=== PATIENT | female | born 1950 | race Caucasian/White ===

== ENCOUNTER 2019-03-07 15:18 | Outpatient (CLI) | payer MEDICARE ==
--- NOTE | 2019-03-07 17:14 | ULT ---
FOCUSED ULTRASOUND OF THE LEFT NECK: 03/07/19 COMPARISON: None. HISTORY: Palpable abnormality within the anterior aspect of the left neck. TECHNIQUE: Multiplanar mcfadden scale sonographic imaging of the neck obtained. FINDINGS: Ion the area of palpable concern, there is a 1.1 x 0.4 cm normal appearing lymph node. In addition, t here is a lymph node measuring 5 mm in short axis dimension in the area of palpable concern. No enlar ged lymph nodes are noted. IMPRESSION: In the area of palpable concern, there are normal appearing lymph nodes. If the area of palpable conc romeo worsens, repeat imaging, including CT, could be beneficial. POS: [facility]
== END 2019-03-07 15:19 | disposition home or self-care (01) ==
LOC: BICULT 15:18
PROVIDERS: ATTEND Internal Medicine Gastroenterology
DX: K21.9 Gastro-esophageal reflux disease without esophagitis (principal); R22.1 Localized swelling, mass and lump, neck; M19.90 Unspecified osteoarthritis, unspecified site
CPT/HCPCS: 76536

== ENCOUNTER 2020-03-13 21:58 | Inpatient (IN) | payer MEDICARE, OTHER ==
[2020-03-13 22:30] LABS: #Lymphocytes 1.5 thou/uL (1.20-3.40); #Monocytes 0.3 thou/uL (0.11-0.59); #Neutrophils 5.5 thou/uL (1.40-6.50); %Basophils 0.4 % (0.0-1.0); %Eosinophils 0.4 % (0.0-10.0); %Lymphocytes 20.3 % (21.0-51.0); %Monocytes 3.8 % (0.0-10.0); Hemoglobin 13.6 g/dL (12.0-16.0); Mean Corpuscular HGB CONC 32.5 g/dL (32.0-36.0); Mean Corpuscular Hemoglobin 30.6 pg (27.0-31.0); Mean Corpuscular Volume 94.1 fL (78.0-98.0); Platelet Count 257 thou/uL (130-400); RBC Distribution Width 12.2 % (11.5-14.5); Red Blood Cell (RBC) Count 4.46 mill/uL (4.20-5.40); White Blood Cell (WBC) Count 7.3 thou/uL (4.8-10.8)
--- NOTE | 2020-03-13 22:39 | RAD ---
EXAM: Single view of the chest HISTORY: Chest pain COMPARISON: None FINDINGS: Single view of the chest shows a normal sized cardiomediastinal silhouette. There is no nuria dence of consolidation, mass, or pleural effusion. Degenerative changes are seen in the spine and shoulders. IMPRESSION: No evidence of acute cardiopulmonary disease
[2020-03-13 22:51] LABS: ALT (SGPT) 12 U/L (8-55); AST (SGOT) 15 U/L (5-34); Albumin 4.4 g/dL (3.4-4.8); Alkaline Phosphatase 62 U/L (40-110); Anion Gap 11 mmol/L (10-20); BUN (Urea Nitrogen) 15 mg/dL (9.8-20.1); Bilirubin, Total 0.4 mg/dL (0.2-1.2); Calc. Creatinine Clearance 0 mL/min (70-130); Calcium 8.9 mg/dL (7.8-10.44); Carbon Dioxide 26 mmol/L (23-31); Chloride 105 mmol/L (98-107); Estimated GFR-MDRD 76; Glucose 119 mg/dL (80-115); Potassium 4.6 mmol/L (3.5-5.1); Protein, Total 7.4 g/dL (6.0-8.3); Sodium 137 mmol/L (136-145)
[2020-03-13] MEDS ORDERED: Aspirin Chewable 81 MG TAB ONE (23:57)
[2020-03-14 02:56] VITALS: BMI 26.0
[2020-03-14] MEDS ORDERED: hydrALAZINE 20 MG/ML VIAL SLOW IVP SCH (04:15)
[2020-03-14] MEDS ORDERED: Bisoprolol Fumarate/HCTZ 5 mg/6.25 mg Tablet PO SCH (05:04)
[2020-03-14] MEDS ORDERED: Acetaminophen 325 MG TAB PO PRN (05:05)
[2020-03-14] MEDS ORDERED: cloNIDine 0.1 MG TAB PO PRN (05:05)
[2020-03-14] MEDS ORDERED: HumaLOG 300 UNITS/3 ML VIAL SC PRN (05:05)
[2020-03-14] MEDS ORDERED: Dextrose 50% Abboject 50 ML SYRINGE SLOW IVP PRN (05:05)
[2020-03-14] MEDS ORDERED: Promethazine HCl 12.5 MG in Sodium Chloride 0.9% 50 ML IVPB PRN (05:05)
[2020-03-14] MEDS ORDERED: Ondansetron PF 4 MG/2 ML Vial IVP PRN (05:05)
[2020-03-14] MEDS ORDERED: hydrALAZINE 20 MG/ML VIAL SLOW IVP PRN (05:05)
[2020-03-14] MEDS ORDERED: HYDROcodone/Acetaminophen 5/325 mg Tablet PO PRN (05:05)
[2020-03-14] MEDS ORDERED: Labetalol HCl 100 MG/20 ML VIAL SLOW IVP PRN (05:05)
[2020-03-14] MEDS ORDERED: Morphine 2 MG/ML VIAL SLOW IVP PRN (05:05)
[2020-03-14] MEDS ORDERED: Bisoprolol Fumarate/HCTZ 10 mg/6.25 mg Tablet PO SCH ×2 (05:10→09:00)
[2020-03-14] MEDS ORDERED: Nitroglycerin 0.4 MG TAB (25 Tab Bottle) SL PRN (05:11)
[2020-03-14] MEDS ORDERED: Electrolyte Replacement Protoc 1 EACH EACH FS PRN (05:15)
--- NOTE | 2020-03-14 05:18 | PDOC.HHP ---
Hospitalist HPI - History of Present Illness Chest pain History of Present Illness: Patient is a 69 year old female with PMH HTN,HLD, prediabetes who presents to ED for chest pain x 30 minutes last ngiht 9-930 pm. She has never had this before, denies history of heart disease. She has HTN and is on norvasc and bisoprolol/hctz and lisinopril. she had a stress test 25 years ago. BP 170s/90s , uncontrolled despite medications. patient has significant FH w/ brother mom and dad all dying from [place]. Hospitalist ROS - Review of Systems Constitutional: denies: fever, chills, sweats, weakness, malaise, other Eyes: denies: pain, vision change, conjunctivae inflammation, eyelid inflammation, redness, other ENT: denies: ear pain, ear discharge, nose pain, nose discharge, nose congestion , mouth pain, mouth swelling, throat pain, throat swelling, other Respiratory: denies: cough, dry, shortness of breath, hemoptysis, SOB with excertion, pleuritic pain, sputum, wheezing, other Cardiovascular: reports: chest pain Gastrointestinal: denies: nausea, vomiting, abdominal pain, diarrhea, constipation, melena, hematochezia, other Genitourinary: denies: dysuria, frequency, incontinence, hematuria, retention, other Musculoskeletal: denies: neck pain, shoulder pain, arm pain, back pain, hand pain, leg pain, foot pain, other Skin: denies: rash, lesions, juan daniel, bruising, other Neurological: denies: weakness, numbness, incoordination, change in speech, confusion, seizures, other All other systems reviewed; all pertinent +/- noted in HPI/Subj - Medication Medications: Active Medications Generic Name Dose Route Start Last Admin Trade Name Freq PRN Reason Stop Dose Admin Hydralazine HCl 5 mg 03/14/20 04:15 03/14/20 04:15 Apresoline SLOW IVP 03/14/20 06:15 5 mg NOW TODD Administration amLODIPine TueMar 13, 2020 22:28 PANFILO Pang Victoria tablet : Strength - 10 mg : ORAL Patient Dose: 10 mg Oral once a day. CoQ-10 TueMar 13, 2020 22:29 PANFILO Pang Victoria capsule : Strength - 100 mg : ORAL Patient Dose: 200 mg Oral once a day. multivitamin oral [facility] Mar 13, 2020 22:29 PANFILO Pang Victoria tablet : ORAL Patient Dose: 1 tab(s) Oral once a day. lisinopril [facility] Mar 13, 2020 22:30 PANFILO Pang Victoria tablet : Strength - 30 mg : ORAL Patient Dose: 30 mg Oral once a day. calcium [facility] Mar 13, 2020 22:31 PANFILO Pang Victoria tablet,chewable : Strength - 300 mg : ORAL Patient Dose: 1200 mg Oral once a day. aspirin oral [facility] Mar 13, 2020 22:31 PANFILO Pang Victoria tablet : Strength - 81 mg : ORAL Patient Dose: 81 mg Oral once a day. Ziac [facility] Mar 13, 2020 22:32 PANFILO Pang Victoria tablet : Strength - 5 mg-6.25 mg : ORAL Patient Dose: 1 tab(s) Oral once a day. Tylenol Arthritis [facility] Mar 13, 2020 22:32 PANFILO Pang Victoria tablet extended release : Strength - 650 mg : ORAL Patient Dose: 2 tab(s) Oral 2 times a day. Claritin [facility] Mar 13, 2020 22:33 PANFILO Pang Victoria tablet : Strength - 10 mg : ORAL Patient Dose: unk mg Oral once a day. Hospitalist History - Past Medical History Other Medical History: prehypertension, prediabetes, breast ca Jun, chemotherapy 1994. - Past Surgical History Other Surgical History: bilateral mastectomy, hysterectomy. - Family History Family History: reports: no pertinent history - Social History Alcohol: reports: None Drugs: reports: none - Exam General Appearance: NAD, awake alert Eye: PERRL, anicteric sclera ENT: normocephalic atraumatic, no oropharyngeal lesions, moist mucosa Neck: supple, symmetric, no JVD, no thyromegaly, no lymphadenopathy, no carotid bruit Heart: RRR, no murmur, no gallops, no rubs, normal peripheral pulses Respiratory: CTAB, no wheezes, no rales, no ronchi, normal chest expansion, no tachypnea, normal percussion Gastrointestinal: soft, non-tender, non-distended, normal bowel sounds, no palpable masses, no hepatomegaly, no splenomegaly, no bruit Extremities: no cyanosis, no clubbing, no edema Skin: normal turgor, no lesions, no rashes Neurological: cranial nerve grossly intact, normal sensation to touch, no weakness, no focal deficits, no new deficit Musculoskeletal: normal tone, normal strength, no muscle wasting Psychiatric: normal affect, normal behavior, A&O x 3 Hospitalist Results - Labs Result Diagrams: 03/13/20 22:21 03/13/20 22:21 Lab results: WBC 7.3 thou/uL (4.8-10.8) 03/13/20 22:21 Hgb 13.6 g/dL (12.0-16.0) 03/13/20 22:21 Hct 42.0 % (36.0-47.0) 03/13/20 22:21 MCV 94.1 fL (78.0-98.0) 03/13/20 22:21 Plt Count 257 thou/uL (130-400) 03/13/20 22:21 Neutrophils % 75.0 % (42.0-75.0) 03/13/20 22:21 Sodium 137 mmol/L (136-145) 03/13/20 22:21 Potassium 4.6 mmol/L (3.5-5.1) 03/13/20 22:21 Chloride 105 mmol/L (98-107) 03/13/20 22:21 Carbon Dioxide 26 mmol/L (23-31) 03/13/20 22:21 BUN 15 mg/dL (9.8-20.1) 03/13/20 22:21 Creatinine 0.76 mg/dL (0.6-1.1) 03/13/20 22:21 Glucose 119 mg/dL (80-115) H 03/13/20 22:21 Calcium 8.9 mg/dL (7.8-10.44) 03/13/20 22:21 Total Bilirubin 0.4 mg/dL (0.2-1.2) 03/13/20 22:21 AST 15 U/L (5-34) 03/13/20 22:21 ALT 12 U/L (8-55) 03/13/20 22:21 Alkaline Phosphatase 62 U/L (40-110) 03/13/20 22:21 Troponin I 0.015 ng/mL (< 0.028) 03/14/20 02:30 Serum Total Protein 7.4 g/dL (6.0-8.3) 03/13/20 22:21 Albumin 4.4 g/dL (3.4-4.8) 03/13/20 22:21 Additional comment: VITAL SIGNS TueMar 14, 2020 00:31 PANFILO Chamorro Amanda BP: 175/86 MAP: 115 Pulse: 54 Resp: 17 Temp: 98.6 (Oral) Pain: 0 O2 sat: 99 on (Room Air) Time: 03/14/2020 00:31. VITAL SIGNS TueMar 14, 2020 01:00 PANFILO Chamorro Amanda BP: 174/96 MAP: 122 Pulse: 57 Resp: 15 Temp: 98.5 (Oral) Pain: 0 O2 sat: 99 on (Room Air) Time: 03/14/2020 01:00. EKG, labs, imaging reports reviewed EKG sinus bradycardia 47 bpm, no acute ST changes Hospitalist H&P A/P - Plan Plan: Patient is a 69 year old female with PMH HTN,HLD, prediabetes who presents to ED for chest pain x 30 minutes last ngiht 9-930 pm. # chest pain - 30 minutes chest pain, EKG w/ sinus bradycardia, patint on beta pricila and other meds for HTN # sinus bradycardia # HTN - uncontrolled - admit to telemetry, obs status - continue home meds - increase hctz/bisoprolol and lisinopril dose for HTN - consult cardiology - add atorvastatin and continue asa/beta pricila - trend troponins - stress test ordered # prediabetes - SSI # HLD - statin added DVT/GI ppx
[2020-03-14] MEDS ORDERED: Lisinopril 20 MG TAB PO SCH (05:30)
[2020-03-14] MEDS ORDERED: Amlodipine 10 MG TAB PO SCH (05:30)
[2020-03-14 06:06] LABS: Troponin I 0.046 ng/mL (< 0.028)
[2020-03-14] MEDS: Enoxaparin Sodium 40 MG/0.4 ML SYRINGE SC SCH (08:45)
[2020-03-14] MEDS: Polyethylene Glycol 3350 17 GM Packet PO SCH (08:50)
[2020-03-14] MEDS: Calcium Carbonate 600 MG TAB PO SCH ×2 (08:51→20:30)
[2020-03-14] MEDS: Multivitamin W/ Minerals 1 TAB PO SCH (08:51)
[2020-03-14] MEDS: Famotidine 20 MG TAB PO SCH ×2 (08:51→20:30)
[2020-03-14] MEDS: Aspirin 81 mg Enteric Coated Tablet PO SCH (08:53)
[2020-03-14 09:38] LABS: CKMB 0.8 ng/mL (0-6.6)
[2020-03-14] MEDS ORDERED: ADENOSINE 60 MG/20 ML VIAL ONE (10:18)
--- NOTE | 2020-03-14 13:54 | NM ---
NM Cardiac Stress W EF WF History: Chest pain Comparison: None. Findings: Stress and rest performed after the intravenous administration 30.2 and 9.2 mCi technetium 99m sestamibi, respectively. Moderate volume scar of the lateral wall near the apex with small volume gudelia-infarct ischemia. Normal wall motion. Calculated ejection fraction is 80%. Impression: Moderate volume scar with small gudelia-infarct ischemia along the lateral wall near the ape x.
[2020-03-14 13:58] LABS: SARS-CoV-2 MS2 Positive; SARS-CoV-2 N Gene Negative; SARS-CoV-2 S Gene Negative; SARS-CoV-2 by NAA Not Detected (NotDetected); SARS-CoV-2 orf1ab Negative
--- NOTE | 2020-03-14 14:03 | PDOC.EVN ---
Event Note - Event Note Event Note: Admitted for CP with mild troponin I elevation with GLOBAL POSITION SYSTEM TECHNICIAN performed showing ischemic region of lateral wall near the apex. Awaiting decision regarding need for cardiac catheterization from Cardiology. NPO now, continue ASA/Nitrates/ Lipitor/Lisinopril.
--- NOTE | 2020-03-14 17:15 | CON ---
DATE OF CONSULTATION: 03/14/2020 REASON FOR CONSULTATION: Chest pain. HISTORY OF PRESENT ILLNESS: Ms. Chauhan is a very pleasant 69-year-old black female, who comes to the hospital for chest pain. She came in for an episode that happened last night between 9:00 and 9:30 p.m. She had a 30-minute episode of chest tightness. It radiated to the left arm. She comes in, initial troponins were negative, so she was sent to have a stress test, which showed possible inferior scar with gudelia-infarct ischemia, so Cardiology has been consulted for this. She states that she has had a stress test about 25 years ago that was negative. Blood pressure was a little bit high on arrival. PAST MEDICAL HISTORY: 1. Hypertension. 2. Hyperlipidemia. 3. Insulin resistance. 4. Breast cancer diagnosed in June 1994 and chemotherapy until 1994. OUTPATIENT MEDICATIONS: 1. Amlodipine 10 mg a day. 2. CoQ10. 3. Multivitamin. 4. Lisinopril 30 mg a day. 5. Calcium. 6. Aspirin 81 a day. 7. Bisoprolol with hydrochlorothiazide 5 mg/6.25 mg a day. 8. Tylenol p.r.n. 9. Claritin p.r.n. SURGICAL HISTORY: 1. Bilateral mastectomies. 2. Hysterectomy. FAMILY HISTORY: Noncontributory. SOCIAL HISTORY: No alcohol, tobacco, or drugs. REVIEW OF SYSTEMS: A 12-point review of systems was done and was all negative unless stated in the history of present illness. PHYSICAL EXAMINATION: VITAL SIGNS: Temperature 98.4, pulse 77, respiratory rate 16, saturations 96% on room air, blood pressure 135/74. GENERAL: Awake, alert, and oriented x3, in no distress. HEENT: Normocephalic and atraumatic. NECK: Supple. LUNGS: Clear. CARDIOVASCULAR: S1 and S2. No S3 or S4. No murmurs. ABDOMEN: Soft. Positive bowel sounds. EXTREMITIES: No edema. SKIN: Warm and dry. LABORATORY DATA: Laboratory work was reviewed. White count of 7, hemoglobin 13, hematocrit 42, and platelet count of 257. Chemistries were unremarkable. Troponin was negative x2, third one was 0.4 and then fourth one was 0.038 with a normal CK-MB. COVID-19 PCR was not detected. Nuclear stress test showed normal LV function and EF at 80%. There is an inferior inferolateral scar with gudelia-infarct ischemia suggested on the perfusion scan. ASSESSMENT: 1. Chest pain. 2. Abnormal nuclear stress test. 3. Hypertension, difficult to control. PLAN: 1. We spoke at length about further risk stratification with a heart catheterization. We spoke about procedure, risks included, but not limited to stroke, NC, , bleeding, need for blood transfusion, limb loss, organ loss. The patient understands, verbalized understanding of this, and agrees to proceed. We will plan on doing this on Tuesday as she had lunch today. 2. Further recommendations per results of coronary angiogram. Job ID: [id number]
[2020-03-14] MEDS: Lisinopril 20 MG TAB PO SCH (20:29)
[2020-03-14] MEDS: Amlodipine 10 MG TAB PO SCH (20:30)
[2020-03-14] MEDS: Atorvastatin Calcium 40 MG TAB PO SCH (20:34)
[2020-03-14] MEDS: Bisoprolol Fumarate/HCTZ 10 mg/6.25 mg Tablet PO SCH (23:28)
[2020-03-15 05:16] LABS: #Basophils 0.1 thou/uL (0.0-0.2); #Lymphocytes 1.7 thou/uL (1.20-3.40); #Monocytes 0.4 thou/uL (0.11-0.59); #Neutrophils 5.9 thou/uL (1.40-6.50); %Basophils 0.8 % (0.0-1.0); %Eosinophils 0.5 % (0.0-10.0); %Lymphocytes 20.4 % (21.0-51.0); %Monocytes 5.4 % (0.0-10.0); %Neutrophils 72.9 % (42.0-75.0); Hemoglobin 14.1 g/dL (12.0-16.0); Mean Corpuscular Hemoglobin 30.8 pg (27.0-31.0); Mean Corpuscular Volume 93.5 fL (78.0-98.0); Mean Platelet Volume 8.1 fL (7.4-10.4); Platelet Count 265 thou/uL (130-400); RBC Distribution Width 12.2 % (11.5-14.5); Red Blood Cell (RBC) Count 4.58 mill/uL (4.20-5.40); White Blood Cell (WBC) Count 8.1 thou/uL (4.8-10.8)
[2020-03-15 05:49] LABS: Anion Gap 14 mmol/L (10-20); BUN (Urea Nitrogen) 16 mg/dL (9.8-20.1); Calc. Creatinine Clearance 89 mL/min (70-130); Calcium 9.5 mg/dL (7.8-10.44); Carbon Dioxide 22 mmol/L (23-31); Cardiac Risk 3.3 (Less than 4.5); Chloride 105 mmol/L (98-107); Cholesterol 200 mg/dl (< 200 Desired); Estimated GFR-MDRD 78; Glucose 111 mg/dL (80-115); HDL Cholesterol 61 mg/dL (>60 Neg Risk); LDL Cholesterol, Calculated 125 mg/dL; Magnesium 2.1 mg/dL (1.6-2.6); Potassium 4.3 mmol/L (3.5-5.1); Sodium 137 mmol/L (136-145); Triglycerides 68 mg/dL (Less than 150)
[2020-03-15] MEDS: Calcium Carbonate 600 MG TAB PO SCH ×2 (08:31→20:23)
[2020-03-15] MEDS: Multivitamin W/ Minerals 1 TAB PO SCH (08:31)
[2020-03-15] MEDS: Aspirin 81 mg Enteric Coated Tablet PO SCH (08:31)
[2020-03-15] MEDS: Famotidine 20 MG TAB PO SCH ×2 (08:31→20:23)
[2020-03-15] MEDS: Enoxaparin Sodium 40 MG/0.4 ML SYRINGE SC SCH (08:32)
[2020-03-15] MEDS: Polyethylene Glycol 3350 17 GM Packet PO SCH (08:32)
--- NOTE | 2020-03-15 11:32 | EKG ---
Test Reason : BRADYCARDIA Blood Pressure : / mmHG Vent. Rate : 047 BPM Atrial Rate : 047 BPM P-R Int : 148 ms QRS Dur : 082 ms QT Int : 450 ms P-R-T Axes : 054 -22 005 degrees QTc Int : 398 ms Marked sinus bradycardia Moderate voltage criteria for LVH, may be normal variant Cannot rule out Septal infarct , age undetermined Abnormal ECG Confirmed by JENNIFER ROSA ([id number]), editorial intern JOSEFA STOVALL ([id number]) on 03/15/2020 11:32:12 AM Referred By: Confirmed By:JENNIFER ROSA
--- NOTE | 2020-03-15 11:32 | EKG ---
Test Reason : CHEST PAIN Blood Pressure : / mmHG Vent. Rate : 061 BPM Atrial Rate : 061 BPM P-R Int : 190 ms QRS Dur : 090 ms QT Int : 400 ms P-R-T Axes : 064 -10 020 degrees QTc Int : 402 ms Normal sinus rhythm Possible Left atrial enlargement Septal infarct , age undetermined Abnormal ECG T wave inversion, III, V2 Confirmed by JENNIFER ROSA ([id number]), technical writer and editor JOSEFA STOVALL ([id number]) on 03/15/2020 11:32:00 AM Referred By: Confirmed By:JENNIFER ROSA
--- NOTE | 2020-03-15 11:32 | EKG ---
Test Reason : CHEST PAIN Blood Pressure : / mmHG Vent. Rate : 053 BPM Atrial Rate : 053 BPM P-R Int : 180 ms QRS Dur : 090 ms QT Int : 430 ms P-R-T Axes : 074 -23 006 degrees QTc Int : 403 ms Sinus bradycardia Minimal voltage criteria for LVH, may be normal variant Borderline ECG Confirmed by JENNIFER ROSA ([id number]), publishing editor JOSEFA STOVALL ([id number]) on 03/15/2020 11:32:09 AM Referred By: Confirmed By:JENNIFER ROSA
--- NOTE | 2020-03-15 13:16 | PDOC.HOSPP ---
- Subjective Encounter Date: 03/15/20 Encounter Time: 09:00 Subjective: no overnight events. this morning feeling well and has no complaints of chest pain or otherwise. Pending [facility] on tuesday - Objective Vital Signs & Weight: Vital Signs (12 hours) Temp Pulse Resp BP Pulse Ox 03/15/20 11:48 98.3 F 54 L 18 117/66 97 03/15/20 08:00 98.1 F 73 20 131/83 97 03/15/20 07:43 97 03/15/20 05:59 58 L 138/79 Weight Weight 171 lb 4.8 oz I&O: 03/14/20 03/15/20 03/16/20 06:59 06:59 06:59 Intake Total 50 480 480 Output Total 600 Balance -550 480 480 Result Diagrams: 03/15/20 04:36 03/15/20 04:36 Additional Labs: Accuchecks 03/15/20 03/14/20 03/14/20 11:54 20:43 16:53 POC Glucose 110 119 H 156 H 03/14/20 14:14 POC Glucose 131 H Hospitalist ROS - Review of Systems Constitutional: denies: fever, chills, sweats Respiratory: denies: cough, dry, shortness of breath Cardiovascular: denies: chest pain, palpitations, orthopnea, paroxysmal noc. dyspnea Gastrointestinal: denies: nausea, vomiting, abdominal pain, diarrhea Genitourinary: denies: dysuria, frequency, hematuria - Medication Medications: Active Medications Generic Name Dose Route Start Last Admin Trade Name Freq PRN Reason Stop Dose Admin Amlodipine Besylate 10 mg 03/14/20 21:00 03/14/20 20:30 Norvasc PO 10 mg HS TODD Administration Aspirin 81 mg 03/14/20 09:00 03/15/20 08:31 Ecotrin PO 81 mg DAILY TODD Administration Atorvastatin Calcium 40 mg 03/14/20 21:00 03/14/20 20:34 Lipitor PO Not Given HS TODD Bisoprolol Fumarate/HCTZ 1 tab 03/14/20 21:00 03/14/20 23:28 Ziac 10-6.25 PO 1 tab HS TODD Administration Calcium Carbonate 600 mg 03/14/20 09:00 03/15/20 08:31 Caltrate PO 600 mg BID TODD Administration Enoxaparin Sodium 40 mg 03/14/20 09:00 03/15/20 08:32 Lovenox SC 40 mg 0900 TODD Administration Famotidine 20 mg 03/14/20 09:00 03/15/20 08:31 Pepcid PO 20 mg BID TODD Administration Iron/Minerals/Multivitamins 1 tab 03/14/20 09:00 03/15/20 08:31 Theragran M PO 1 tab DAILY TODD Administration Lisinopril 40 mg 03/14/20 21:00 03/14/20 20:29 Zestril PO 40 mg HS TODD Administration Polyethylene Glycol 17 gm 03/14/20 09:00 03/15/20 08:32 Miralax PO Not Given DAILY TODD - Exam General Appearance: NAD, awake alert Neck: no JVD Heart: RRR, no murmur, no gallops, no rubs Respiratory: CTAB, no wheezes, no rales, no ronchi Gastrointestinal: soft, non-tender, non-distended, normal bowel sounds Extremities: no edema Psychiatric: normal affect, normal behavior, A&O x 3 Hosp A/P - Plan #chest pain (resolved) abnormal stress test pending [facility] on tuesday #sinus bradycardia asymptomatic cardiology onboard #HTN well controlled full code ELOS: 3 nights
--- NOTE | 2020-03-15 16:08 | PDOC.CPN ---
- Subjective Date: 03/15/20 Time: 16:06 Interval history: No new issues. No more chest pain. - Review of Systems General: denies: fever/chills, weight/appetite/sleep changes, night sweats, fatigue Respiratory: denies: cough, congestion, shortness of breath, exercise intolerance Cardiovascular: denies: chest pain, palpitation, edema, paroxysmal nocturnal dyspnea, orthopnea Gastrointestinal: denies: nausea, vomiting, diarrhea, constipation, abd pain, GI bleeding Musculoskeletal: denies: pain, tenderness, stiffness, swelling, arthritis/ arthralgias Neurological: denies: numbness, syncope, seizure, weakness - Objective Allergies/Adverse Reactions: Allergies Allergy/AdvReac Type Severity Reaction Status Date / Time No Known Allergies Allergy Unverified 03/14/20 03:07 Visit Medications: Current Medications Acetaminophen (Tylenol) 650 mg PO Q4H PRN PRN Reason: Headache/Fever/Mild Pain (1-3) Hydrocodone Bitart/Acetaminophen ([place] 5/325) 1 tab PO Q4H PRN PRN Reason: Moderate Pain (4-6) Albuterol/Ipratropium (Duoneb) 3 ml NEB [id number] PRN PRN Reason: SOB &/or Wheezing Amlodipine Besylate (Norvasc) 10 mg PO [facility] Last Admin: 03/14/20 20:30 Dose: 10 mg Aspirin (Ecotrin) 81 mg PO DAILY [facility] Last Admin: 03/15/20 08:31 Dose: 81 mg Atorvastatin Calcium (Lipitor) 40 mg PO [facility] Last Admin: 03/14/20 20:34 Dose: Not Given Bisoprolol Fumarate/HCTZ (Ziac 10-6.25) 1 tab PO [facility] Last Admin: 03/14/20 23:28 Dose: 1 tab Calcium Carbonate (Caltrate) 600 mg PO BID [facility] Last Admin: 03/15/20 08:31 Dose: 600 mg Clonidine (Catapres) 0.1 mg PO BID PRN PRN Reason: SBP > 160 use second Dextrose/Water (Dextrose 50%) 25 gm SLOW IVP PRN PRN PRN Reason: Hypoglycemia Enoxaparin Sodium (Lovenox) 40 mg SC 0900 [facility] Last Admin: 03/15/20 08:32 Dose: 40 mg Famotidine (Pepcid) 20 mg PO BID [facility] Last Admin: 03/15/20 08:31 Dose: 20 mg Hydralazine HCl (Apresoline) 10 mg SLOW IVP Q6H PRN PRN Reason: SBP GREATER THAN 160 Promethazine HCl 12.5 mg/ (Sodium Chloride) 50.5 mls @ 202 mls/hr IVPB Q6H PRN PRN Reason: Nausea/vomiting use second Insulin Human Lispro (Humalog) 0 units SC .MILD SLIDING SCALE PRN PRN Reason: Mild Correctional Scale Iron/Minerals/Multivitamins (Theragran M) 1 tab PO DAILY [facility] Last Admin: 03/15/20 08:31 Dose: 1 tab Labetalol HCl (Normodyne) 20 mg SLOW IVP Q4H PRN PRN Reason: SBP > 160 use third Lisinopril (Zestril) 40 mg PO [facility] Last Admin: 03/14/20 20:29 Dose: 40 mg Miscellaneous Medication (Electrolyte Replacement Protocol) 1 each FS PRN PRN PRN Reason: ELECTROLYTES Morphine Sulfate (Morphine) 2 mg SLOW IVP Q4H PRN PRN Reason: severe pain 4-10 Nitroglycerin (Nitrostat) 0.4 mg SL Q5MIN PRN PRN Reason: Chest Pain Ondansetron HCl (Zofran) 4 mg IVP Q6H PRN PRN Reason: Nausea/Vomiting use 1st Polyethylene Glycol (Miralax) 17 gm PO DAILY [facility] Last Admin: 03/15/20 08:32 Dose: Not Given Vital Signs & Weight: Vital Signs Temp Pulse Resp BP Pulse Ox 03/15/20 11:48 98.3 F 54 L 18 117/66 97 03/15/20 08:00 98.1 F 73 20 131/83 97 03/15/20 07:43 97 03/15/20 05:59 58 L 138/79 Weight 171 lb 4.8 oz - Physical Exam General: alert & oriented x3 HEENT: mucus membranes moist Neck: supple neck Cardiac: regular rate and rhythm Lungs: normal breath sounds Neuro: grossly intact Abdomen: active bowel sounds Extremities: no edema Skin: clear Musculoskeletal: no pain - Labs Result Diagrams: 03/15/20 04:36 03/15/20 04:36 Troponin/CKMB CK-MB (CK-2) 0.8 ng/mL (0-6.6) 03/14/20 08:28 Troponin I 0.038 ng/mL (< 0.028) H 03/14/20 08:28 - Telemetry Sinus rhythms and dysrhythmias: sinus rhythm - Assessment/Plan Assessment/Plan: 1. Chest pain. 2. Abnormal stress test, inferior scar with gudelia infarct ischemia PLAN: - [facility] tuesday. - Radial access. JACKIE of needed.
[2020-03-15] MEDS: Amlodipine 10 MG TAB PO SCH (20:22)
[2020-03-15] MEDS: Bisoprolol Fumarate/HCTZ 10 mg/6.25 mg Tablet PO SCH (20:23)
[2020-03-15] MEDS: Lisinopril 20 MG TAB PO SCH (20:23)
[2020-03-15] MEDS: Atorvastatin Calcium 40 MG TAB PO SCH (20:23)
[2020-03-16] MEDS: Calcium Carbonate 600 MG TAB PO SCH ×2 (08:55→21:12)
[2020-03-16] MEDS: Enoxaparin Sodium 40 MG/0.4 ML SYRINGE SC SCH (08:55)
[2020-03-16] MEDS: Famotidine 20 MG TAB PO SCH ×2 (08:55→21:12)
[2020-03-16] MEDS: Aspirin 81 mg Enteric Coated Tablet PO SCH (08:55)
[2020-03-16] MEDS: Polyethylene Glycol 3350 17 GM Packet PO SCH (08:56)
[2020-03-16] MEDS: Multivitamin W/ Minerals 1 TAB PO SCH (08:56)
--- NOTE | 2020-03-16 17:29 | PDOC.CPN ---
- Subjective Date: 03/16/20 Time: 17:28 Interval history: No new issues. No more chest pain. - Review of Systems General: denies: fever/chills, weight/appetite/sleep changes, night sweats, fatigue Respiratory: denies: cough, congestion, shortness of breath, exercise intolerance Cardiovascular: denies: chest pain, palpitation, edema, paroxysmal nocturnal dyspnea, orthopnea Gastrointestinal: denies: nausea, vomiting, diarrhea, constipation, abd pain, GI bleeding Musculoskeletal: denies: pain, tenderness, stiffness, swelling, arthritis/ arthralgias Neurological: denies: numbness, syncope, seizure, weakness - Objective Allergies/Adverse Reactions: Allergies Allergy/AdvReac Type Severity Reaction Status Date / Time No Known Allergies Allergy Unverified 03/14/20 03:07 Visit Medications: Current Medications Acetaminophen (Tylenol) 650 mg PO Q4H PRN PRN Reason: Headache/Fever/Mild Pain (1-3) Hydrocodone Bitart/Acetaminophen ([place] 5/325) 1 tab PO Q4H PRN PRN Reason: Moderate Pain (4-6) Albuterol/Ipratropium (Duoneb) 3 ml NEB [id number] PRN PRN Reason: SOB &/or Wheezing Amlodipine Besylate (Norvasc) 10 mg PO [facility] Last Admin: 03/15/20 20:22 Dose: 10 mg Aspirin (Ecotrin) 81 mg PO DAILY [facility] Last Admin: 03/16/20 08:55 Dose: 81 mg Atorvastatin Calcium (Lipitor) 40 mg PO [facility] Last Admin: 03/15/20 20:23 Dose: 40 mg Bisoprolol Fumarate/HCTZ ([place] 10-6.25) 1 tab PO [facility] Last Admin: 03/15/20 20:23 Dose: 1 tab Calcium Carbonate (Caltrate) 600 mg PO BID [facility] Last Admin: 03/16/20 08:55 Dose: 600 mg Clonidine (Catapres) 0.1 mg PO BID PRN PRN Reason: SBP > 160 use second Dextrose/Water (Dextrose 50%) 25 gm SLOW IVP PRN PRN PRN Reason: Hypoglycemia Enoxaparin Sodium (Lovenox) 40 mg SC 0900 [facility] Last Admin: 03/16/20 08:55 Dose: 40 mg Famotidine (Pepcid) 20 mg PO BID [facility] Last Admin: 03/16/20 08:55 Dose: 20 mg Hydralazine HCl (Apresoline) 10 mg SLOW IVP Q6H PRN PRN Reason: SBP GREATER THAN 160 Promethazine HCl 12.5 mg/ (Sodium Chloride) 50.5 mls @ 202 mls/hr IVPB Q6H PRN PRN Reason: Nausea/vomiting use second Insulin Human Lispro (Humalog) 0 units SC .MILD SLIDING SCALE PRN PRN Reason: Mild Correctional Scale Iron/Minerals/Multivitamins (Theragran M) 1 tab PO DAILY [facility] Last Admin: 03/16/20 08:56 Dose: 1 tab Labetalol HCl (Normodyne) 20 mg SLOW IVP Q4H PRN PRN Reason: SBP > 160 use third Lisinopril (Zestril) 40 mg PO HS [facility] Last Admin: 03/15/20 20:23 Dose: 40 mg Miscellaneous Medication (Electrolyte Replacement Protocol) 1 each FS PRN PRN PRN Reason: ELECTROLYTES Morphine Sulfate (Morphine) 2 mg SLOW IVP Q4H PRN PRN Reason: severe pain 4-10 Nitroglycerin (Nitrostat) 0.4 mg SL Q5MIN PRN PRN Reason: Chest Pain Ondansetron HCl (Zofran) 4 mg IVP Q6H PRN PRN Reason: Nausea/Vomiting use 1st Polyethylene Glycol (Miralax) 17 gm PO DAILY [facility] Last Admin: 03/16/20 08:56 Dose: 17 gm Vital Signs & Weight: Vital Signs Temp Pulse Resp BP Pulse Ox 03/16/20 15:21 98.1 F 60 18 119/73 97 03/16/20 11:55 98 F 55 L 18 121/75 95 03/16/20 08:54 98 03/16/20 08:00 97.9 F 57 L 17 151/86 H 97 Weight 171 lb 4.8 oz - Physical Exam General: alert & oriented x3 HEENT: mucus membranes moist Neck: supple neck Cardiac: regular rate and rhythm Lungs: clear to auscultation Neuro: grossly intact Abdomen: active bowel sounds Extremities: no edema Skin: clear Musculoskeletal: no pain - Labs Result Diagrams: 03/15/20 04:36 03/15/20 04:36 Troponin/CKMB CK-MB (CK-2) 0.8 ng/mL (0-6.6) 03/14/20 08:28 Troponin I 0.038 ng/mL (< 0.028) H 03/14/20 08:28 - Telemetry Sinus rhythms and dysrhythmias: sinus rhythm - Assessment/Plan Assessment/Plan: 1. Chest pain. 2. Abnormal stress test, inferior scar with gudelia infarct ischemia PLAN: - [facility] Tomorrow. - Radial access. JACKIE of needed.
--- NOTE | 2020-03-16 18:27 | PDOC.HOSPP ---
- Subjective Encounter Date: 03/16/20 Encounter Time: 09:00 Subjective: no overnight events. this morning, feeling well and has no complaints. - Objective Vital Signs & Weight: Vital Signs (12 hours) Temp Pulse Resp BP Pulse Ox 03/16/20 15:21 98.1 F 60 18 119/73 97 03/16/20 11:55 98 F 55 L 18 121/75 95 03/16/20 08:54 98 03/16/20 08:00 97.9 F 57 L 17 151/86 H 97 Weight Weight 171 lb 4.8 oz I&O: 03/15/20 03/16/20 03/17/20 06:59 06:59 06:59 Intake Total 480 1200 Balance 480 1200 Result Diagrams: 03/15/20 04:36 03/15/20 04:36 Additional Labs: Accuchecks 03/16/20 03/16/20 03/16/20 17:02 10:48 06:31 POC Glucose 119 H 129 H 108 03/15/20 21:11 POC Glucose 133 H Hospitalist ROS - Review of Systems Constitutional: denies: chills, sweats Respiratory: denies: cough, dry, shortness of breath Gastrointestinal: denies: nausea, vomiting, abdominal pain Musculoskeletal: denies: shoulder pain, back pain Neurological: denies: weakness - Medication Medications: Active Medications Generic Name Dose Route Start Last Admin Trade Name Freq PRN Reason Stop Dose Admin Amlodipine Besylate 10 mg 03/14/20 21:00 03/15/20 20:22 Norvasc PO 10 mg HS TODD Administration Aspirin 81 mg 03/14/20 09:00 03/16/20 08:55 Ecotrin PO 81 mg DAILY TODD Administration Atorvastatin Calcium 40 mg 03/14/20 21:00 03/15/20 20:23 Lipitor PO 40 mg HS TODD Administration Bisoprolol Fumarate/HCTZ 1 tab 03/14/20 21:00 03/15/20 20:23 Ziac 10-6.25 PO 1 tab HS TODD Administration Calcium Carbonate 600 mg 03/14/20 09:00 03/16/20 08:55 Caltrate PO 600 mg BID TODD Administration Enoxaparin Sodium 40 mg 03/14/20 09:00 03/16/20 08:55 Lovenox SC 03/16/20 21:30 40 mg 0900 TODD Administration Famotidine 20 mg 03/14/20 09:00 03/16/20 08:55 Pepcid PO 20 mg BID TODD Administration Iron/Minerals/Multivitamins 1 tab 03/14/20 09:00 03/16/20 08:56 Theragran M PO 1 tab DAILY TODD Administration Lisinopril 40 mg 03/14/20 21:00 03/15/20 20:23 Zestril PO 40 mg HS TODD Administration Polyethylene Glycol 17 gm 03/14/20 09:00 03/16/20 08:56 Miralax PO 17 gm DAILY TODD Administration - Exam General Appearance: NAD, awake alert Eye: PERRL Neck: no JVD Heart: RRR, no murmur, no gallops, no rubs Respiratory: CTAB, no wheezes, no rales, no ronchi Gastrointestinal: soft, non-tender, non-distended, normal bowel sounds Extremities: no edema Psychiatric: normal affect, normal behavior, A&O x 3 Hosp A/P - Plan #chest pain (resolved) abnormal stress test pending [facility] on tuesday #sinus bradycardia asymptomatic cardiology onboard #HTN well controlled full code ELOS: 2 nights
[2020-03-16] MEDS ORDERED: Communication Order-Pharmacy FS SCH (18:30)
[2020-03-16] MEDS: Lisinopril 20 MG TAB PO SCH (21:11)
[2020-03-16] MEDS: Bisoprolol Fumarate/HCTZ 10 mg/6.25 mg Tablet PO SCH (21:11)
[2020-03-16] MEDS: Amlodipine 10 MG TAB PO SCH (21:12)
[2020-03-16] MEDS: Atorvastatin Calcium 40 MG TAB PO SCH (21:12)
[2020-03-17] MEDS: Sodium Chloride 0.9% 1,000 ML IV SCH ×3 (05:55→05:57)
[2020-03-17] MEDS ORDERED: Verapamil 5 MG/2 ML VIAL ONE (08:43)
[2020-03-17] MEDS ORDERED: Heparin 10,000 UNITS/ 10 ML VIAL ONE (08:43)
[2020-03-17] MEDS ORDERED: Nitroglycerin 100MG/250ML BOT 250 ML ONE (08:44)
[2020-03-17] MEDS ORDERED: Iopamidol 370 76% 100 ML VIAL ONE (09:14)
[2020-03-17] MEDS ORDERED: Fentanyl 100 MCG/2 ML VIAL ONE (09:25)
[2020-03-17] MEDS ORDERED: Midazolam HCl 2 mg/2 ml Vial ONE (09:25)
[2020-03-17] MEDS ORDERED: Sodium Chloride 0.9% 200 ML IV PRN (09:45)
[2020-03-17] MEDS ORDERED: Acetaminophen/Codeine 30-300mg Tablet PO PRN (09:45)
[2020-03-17] MEDS ORDERED: Sodium Chloride 0.9% 500 ML IV SCH (10:00)
[2020-03-17] MEDS: Multivitamin W/ Minerals 1 TAB PO SCH (11:19)
[2020-03-17] MEDS: Calcium Carbonate 600 MG TAB PO SCH (11:19)
[2020-03-17] MEDS: Aspirin 81 mg Enteric Coated Tablet PO SCH (11:19)
[2020-03-17] MEDS: Polyethylene Glycol 3350 17 GM Packet PO SCH (11:20)
[2020-03-17] MEDS: Famotidine 20 MG TAB PO SCH (11:27)
[2020-03-17 15:01] VITALS: BP 128/63; TEMP 97.8
--- NOTE | 2020-03-18 07:02 | DIS ---
DATE OF ADMISSION: 03/14/2020 DATE OF DISCHARGE: 03/17/2020 CONSULTANTS: Dr. Cabrera of Cardiology. DISCHARGE MEDICATIONS: Medications reconciled at discharge. New medications: 1. Atorvastatin 40 mg daily. 2. Pantoprazole 20 mg daily p.o. All other home medications were continued which include; 1. Lisinopril 30 mg. 2. Bisoprolol/hydrochlorothiazide 1 tablet 5/6.25 mg. 3. Amlodipine 10 mg. 4. Calcium carbonate 600 mg p.o. b.i.d. 5. Multivitamin 1 tablet p.o. daily. 6. Aspirin 81 mg p.o. daily. 7. CoQ10 200 mg p.o. daily. No medications were stopped or modified. FINAL DIAGNOSES: 1. Coronary artery disease 2. Hypertension 3. Hyperlipidemia 3. Chest pain 4. GERD HISTORY OF PRESENT ILLNESS: 69-year-old female with past medical history of hypertension, hyperlipidemia, prediabetes who presents to ED for chest pain for 30 minutes night prior to admission. Patient reports she has never had this before. Denies history of heart disease. She has hypertension and is on Norvasc, Bisoprolol/hydrochlorothiazide, and lisinopril. She had a stress test 25 years ago. Blood pressure 170s/90s. Patient has significant family history of cardiac disease with brother, mom, and dad all dying from OK. HOSPITAL COURSE: Ms. Chauhan is a 69-year-old female with past medical history of hypertension, hyperlipidemia, and significant family history of fatal OK in her brother and both her parents, who presented to the ED on 03/14/2020 for chest pain. Initial workup showed an EKG with sinus bradycardia with no ischemic changes. Initial troponin levels were 0.015, 0.046, 0.038. Cardiac stress test revealed an ejection fraction of 80% with moderate volume scar and small gudelia-infract ischemia along the lateral wall near the apex. Dr. Cabrera of Cardiology was consulted who recommended heart catheterization. Patient underwent a left heart catheterization on 03/17/2020 with radial access which revealed 40% stenosis of the proximal LAD. Dr. Cabrera felt the patient's chest pain to be noncardiac in origin. Chest pain likely secondary to GI distress/GERD. We will start patient on PPI. Dr. Cabrera also recommended that patient continue aspirin and statin for life along with undergoing an elective CV surgery consultation. On the day of discharge the patient's vital signs were stable. Patient tolerated the procedure well with no complications. Hemostasis at the right radial artery was achieved with no evidence of hematoma and good pulses. Patient was felt to be medically stable for discharge with close follow-up with her PCP and Cardiology. Patient was continued on all home medications as well as starting atorvastatin 40 mg daily and pantoprazole 20 mg daily. These will need to be monitored by the patient's primary care provider. Patient will follow up with her PCP in 1 week and with Cardiology in 3 to 4 weeks. Vital signs on the day of discharge 97.8, 55, 128/63, 17, 97 on room air. Patient was initially hypertensive on presentation, but this resolved when resuming her home antihypertensives. PHYSICAL EXAMINATION: GENERAL: Awake, alert, in no acute distress. HEENT: Normocephalic, atraumatic. NECK: Supple with no JVD. LUNGS: Clear to auscultation bilaterally with no wheezes, rales, or rhonchi. HEART: Regular rate and rhythm. No murmurs, rubs, or gallops. ABDOMEN: Soft, nontender. Normoactive bowel sounds. EXTREMITIES: With no swelling, no focal deficits. Sensation intact to extremities. Right radial artery access with no hematoma, good radial pulses and ulnar pulses. Right hand with good capillary refill. LABORATORY DATA: Initial labs; CBC showed white blood cell count 7.3, hemoglobin 13.6, hematocrit 42.0, platelets 257. Chemistry: Sodium 137, potassium 4.3, chloride 105, carbon dioxide 22, BUN 16, creatinine 0.74. Glucose 111. Calcium 9.5, magnesium 2.1, cholesterol 200, LDL 125, HDL 61, triglycerides 68. COVID- 19 negative. IMAGING STUDIES: Chest x-ray done on 03/13/2020 showed no evidence of acute cardiopulmonary disease. Stress test on 03/14/2020 showed calculated ejection fraction of 80% with moderate volume scar with small gudelia-infract ischemic along the lateral wall near the apex. Left heart cath done on 03/17/2020 showed a 40% stenosis of the proximal LAD, mild coronary artery disease, normal left ejection fraction, normal left ventricle end-diastolic pressure. No LV to aortic gradient. DIET: Heart healthy diet. ACTIVITIES: Radial artery access restrictions. No lifting 10 pounds for 10 days. CODE STATUS: Full code. DISCHARGE DISPOSITION: Home. FOLLOWUP: Patient to follow up with her primary care physician in 1 weeek and to follow up with Cardiology, Dr. Cabrera in 3 to 4 weeks. Patient demonstrates understanding and is in agreement with plan. Case discussed with attending physician, Dr. Hawk. TIME SPENT: Time spent on discharge planning is less than 30 minutes. Job ID: [id number] [id number]
== END 2020-03-17 17:18 | disposition home or self-care (01) | DRG 392 ==
LOC: ERS 21:58 → 2SW 03-14 01:22 → OBSVTOIN 03-14 15:20 → 2SE 03-14 17:59
PROVIDERS: ADMIT Internal Medicine; ATTEND Internal Medicine
PROC: B2111ZZ Fluoroscopy of Multiple Coronary Arteries using Low Osmolar Contrast (ICD-10-PCS; principal; 2020-03-17)
PROC: 4A023N7 Measurement of Cardiac Sampling and Pressure, Left Heart, Percutaneous Approach (ICD-10-PCS; 2020-03-17)
DX: K21.9 Gastro-esophageal reflux disease without esophagitis (principal); I10 Essential (primary) hypertension; R00.1 Bradycardia, unspecified; E78.5 Hyperlipidemia, unspecified; R73.03 Prediabetes; Z79.899 Other long term (current) drug therapy; Z79.82 Long term (current) use of aspirin; Z90.710 Acquired absence of both cervix and uterus; Z90.13 Acquired absence of bilateral breasts and nipples; Z92.21 Personal history of antineoplastic chemotherapy; R07.9 Chest pain, unspecified; I25.10 Atherosclerotic heart disease of native coronary artery without angina pectoris
CPT/HCPCS: 36415; 36416; 71045; 78452; 80048; 80053; 80061; 82553; 83735; 84484; 85025; 87635; 93005; 93017; 93458; 96374; 99152; A9500; G0378; J0153; J0360; J1644; J1650; J2250; J3010; Q9967; U0003

== ENCOUNTER 2022-08-18 14:11 | Outpatient (CLI) | payer MEDICARE ==
[2022-08-18 15:06] LABS: #Basophils 0.1 10x3/uL (0.0-0.2); #Eosinphils 0.1 10x3/uL (0.0-0.5); #Monocytes 0.4 10x3/uL (0.0-1.1); #Neutrophils 4.6 10x3/uL (1.5-8.4); %Basophils 0.8 % (0.0-2.0); %Eosinophils 0.9 % (0.0-6.0); %Lymphocytes 21.5 % (18.0-47.0); %Monocytes 5.7 % (0.0-10.0); %Neutrophils 70.9 % (40.0-75.0); Hemoglobin 13.8 g/dL (12.0-15.5); Mean Corpuscular HGB CONC 33.7 g/dL (32.0-36.0); Mean Corpuscular Volume 92.1 fl (81.6-98.3); Mean Platelet Volume 10.4 fl (7.4-10.4); Platelet Count 248 10x3/uL (150-450); RBC Distribution Width 12.8 % (11.5-14.5); Red Blood Cell (RBC) Count 4.45 10x6/uL (3.90-5.03); White Blood Cell (WBC) Count 6.5 10x3/uL (3.5-10.5)
[2022-08-18 15:30] LABS: Anion Gap 16 mmol/L (10-20); BUN (Urea Nitrogen) 18 mg/dL (9.8-20.1); Calc. Creatinine Clearance 0 mL/min (70-130); Carbon Dioxide 26 mmol/L (23-31); Chloride 100 mmol/L (98-107); Estimated GFR 72; Glucose 105 mg/dL (83-110); Potassium 4.5 mmol/L (3.5-5.1); Sodium 137 mmol/L (136-145)
== END 2022-08-18 14:12 | disposition home or self-care (01) ==
LOC: LABBT 14:11
PROVIDERS: ATTEND Orthopaedic Surgery
DX: Z01.818 Encounter for other preprocedural examination (principal); M12.9 Arthropathy, unspecified
CPT/HCPCS: 80048; 85025; 93005; 93010

== ENCOUNTER 2022-08-19 06:33 | Observation (INO) | payer MEDICARE ==
[2022-08-18 08:58] VITALS: BMI 21.8
[2022-08-19] MEDS ORDERED: Sodium Chloride 0.9% 100 ML ONE ×2 (07:01→10:20)
[2022-08-19] MEDS ORDERED: Vancomycin 1 GM/200 ML (FROZEN) BAG ONE (07:01)
[2022-08-19] MEDS ORDERED: Tranexamic Acid 1,000 MG/10 ML VIAL ONE (07:01)
[2022-08-19] MEDS ORDERED: Midazolam HCl 2 mg/2 ml Vial ONE (08:17)
[2022-08-19] MEDS ORDERED: Fentanyl 100 MCG/2 ML VIAL ONE (08:17)
[2022-08-19] MEDS ORDERED: Ropivacaine 0.5% HCl/PF (150 MG/30 ML VIAL) ONE (08:18)
[2022-08-19] MEDS ORDERED: Fentanyl 100 MCG/2 ML VIAL IV PRN (09:42)
[2022-08-19] MEDS ORDERED: Zolpidem Tartrate 5 MG TAB PO PRN (09:45)
[2022-08-19] MEDS ORDERED: HYDROcodone/Acetaminophen 10/325 mg Tablet PO PRN ×2 (09:45)
[2022-08-19] MEDS ORDERED: Ondansetron PF 4 MG/2 ML Vial IVP PRN (09:45)
[2022-08-19] MEDS ORDERED: traMADol HCl 50 MG TAB PO PRN ×2 (09:45)
[2022-08-19] MEDS ORDERED: Promethazine HCl 25 MG/ML VIAL IM PRN ×2 (09:45→12:03)
[2022-08-19] MEDS ORDERED: Ropivacaine 0.2% 550 ML 550 ML NERVE BLCK SCH (09:45)
[2022-08-19] MEDS ORDERED: fentaNYL PF 100 MCG/2 ML SYRINGE ONE ×2 (09:56→10:15)
[2022-08-19] MEDS ORDERED: CEFAZOLIN 2 GM VIAL ONE (10:20)
[2022-08-19] MEDS ORDERED: Ondansetron PF 4 MG/2 ML Vial ONE (10:22)
[2022-08-19] MEDS ORDERED: PROPOFOL 200 MG/20 ML VIAL ONE (10:22)
[2022-08-19] MEDS ORDERED: Lidocaine 1% PF 5 ML VIAL ONE (10:22)
[2022-08-19] MEDS ORDERED: ePHEDrine 50 MG/ML VIAL ONE (10:22)
[2022-08-19] MEDS ORDERED: PHENYLEPHRINE-NS 100 MCG/ML 10 ML SYRINGE ONE (10:22)
[2022-08-19] MEDS ORDERED: Rocuronium Bromide 10 MG/ML (10ML VIAL) ONE (10:22)
[2022-08-19] MEDS ORDERED: Dexamethasone 20 MG/5 ML VIAL ONE (10:22)
[2022-08-19 10:51] LABS: SARS-CoV-2 NAA Rapid Test Not Detected (NotDetected)
[2022-08-19] MEDS ORDERED: Ondansetron HCl/PF 4 MG/2 ML Vial IVP PRN (12:03)
[2022-08-19] MEDS ORDERED: Ketorolac Tromethamine 30 MG/ML VIAL IVP PRN (12:03)
[2022-08-19] MEDS ORDERED: HYDROmorphone 2 MG/ML VIAL SLOW IVP PRN (12:03)
[2022-08-19] MEDS ORDERED: Ketorolac Tromethamine 30 MG/ML VIAL ONE ×2 (12:17→16:19)
[2022-08-19] MEDS: Ketorolac Tromethamine 30 MG/ML VIAL IVP SCH ×2 (12:18→18:35)
[2022-08-19] MEDS: Lactated Ringer's 1,000 ML IV SCH ×2 (12:19→22:29)
[2022-08-19] MEDS: CEFAZOLIN 2 GM in Sodium Chloride 0.9% 100 ML IVPB SCH (18:35)
[2022-08-19] MEDS: Calcium Carbonate 600 MG TAB PO SCH (20:10)
[2022-08-19] MEDS ORDERED: Amlodipine 10 MG TAB PO SCH (21:00)
[2022-08-19] MEDS ORDERED: Lisinopril 20 MG TAB PO SCH (21:00)
[2022-08-19] MEDS ORDERED: Aspirin 81 mg Enteric Coated Tablet PO SCH (21:00)
[2022-08-20] MEDS: Ketorolac Tromethamine 30 MG/ML VIAL IVP SCH ×2 (00:08→04:40)
[2022-08-20] MEDS: CEFAZOLIN 2 GM in Sodium Chloride 0.9% 100 ML IVPB SCH (00:08)
[2022-08-20] MEDS ORDERED: Multivit, Therapeutic 1 TAB PO SCH (09:00)
[2022-08-20] MEDS ORDERED: CO Q-10 CAPSULE 100 MG PO SCH (09:00)
[2022-08-20] MEDS ORDERED: Loratadine 10 MG TAB PO SCH (09:00)
[2022-08-20] MEDS ORDERED: Bisoprolol Fumarate/HCTZ 5 mg/6.25 mg Tablet PO SCH (09:00)
[2022-08-20] MEDS: Calcium Carbonate 600 MG TAB PO SCH (09:35)
[2022-08-20 12:07] VITALS: BP 131/81; TEMP 98.4
== END 2022-08-20 12:15 | disposition home or self-care (01) ==
LOC: SDC 06:33 → SURG B 09:48
PROVIDERS: ADMIT Orthopaedic Surgery; ATTEND Orthopaedic Surgery
PROC: 0RRJ00Z Replacement of Right Shoulder Joint with Reverse Ball and Socket Synthetic Substitute, Open Approach (ICD-10-PCS; principal; 2022-08-19)
DX: M12.811 Other specific arthropathies, not elsewhere classified, right shoulder (principal); M75.21 Bicipital tendinitis, right shoulder; M12.812 Other specific arthropathies, not elsewhere classified, left shoulder; I10 Essential (primary) hypertension; K21.9 Gastro-esophageal reflux disease without esophagitis; Z85.3 Personal history of malignant neoplasm of breast; Z79.82 Long term (current) use of aspirin; Z79.899 Other long term (current) drug therapy; Z88.8 Allergy status to other drugs, medicaments and biological substances; Z91.048 Other nonmedicinal substance allergy status; Z20.822 Contact with and (suspected) exposure to COVID-19
CPT/HCPCS: 23472; 97110; 97116; 97535; A4306; C1713 ×6; C1776 ×2; J3370; U0002; J1100; J1885; J2250; J2405; J2704; J2795; J3010; J3490

== ENCOUNTER 2023-07-22 10:50 | Outpatient (CLI) | payer MEDICARE | END 2023-07-22 10:51 | disposition home or self-care (01) | LOC: BICMAMMO 10:50 | PROVIDERS: ATTEND Obstetrics & Gynecology | DX: Z13.820 Encounter for screening for osteoporosis (principal); N95.1 Menopausal and female climacteric states; Z85.3 Personal history of malignant neoplasm of breast; M85.80 Other specified disorders of bone density and structure, unspecified site | CPT/HCPCS: 77080 ==

== ENCOUNTER 2023-08-03 11:00 | Outpatient (CLI) | payer MEDICARE, OTHER ==
[2023-08-03 12:22] LABS: #Basophils 0.1 10x3/uL (0.0-0.2); #Monocytes 0.3 10x3/uL (0.0-1.1); #Neutrophils 4.2 10x3/uL (1.5-8.4); %Basophils 0.9 % (0.0-2.0); %Eosinophils 0.7 % (0.0-6.0); %Lymphocytes 18.5 % (18.0-47.0); %Monocytes 5.9 % (0.0-10.0); %Neutrophils 73.8 % (40.0-75.0); Hematocrit 43.6 % (34.9-44.5); Hemoglobin 14.9 g/dL (12.0-15.5); Mean Corpuscular HGB CONC 34.2 g/dL (32.0-36.0); Mean Corpuscular Hemoglobin 30.7 pg (27.0-33.0); Mean Corpuscular Volume 89.7 fl (81.6-98.3); Platelet Count 253 10x3/uL (150-450); RBC Distribution Width 12.6 % (11.5-14.5); Red Blood Cell (RBC) Count 4.86 10x6/uL (3.90-5.03); White Blood Cell (WBC) Count 5.7 10x3/uL (3.5-10.5)
[2023-08-03 12:30] LABS: Anion Gap 16 mmol/L (10-20); BUN (Urea Nitrogen) 16 mg/dL (9.8-20.1); Calc. Creatinine Clearance 0 mL/min (70-130); Calcium 10.4 mg/dL (7.8-10.44); Carbon Dioxide 24 mmol/L (23-31); Chloride 99 mmol/L (98-107); Estimated GFR 77; Glucose 96 mg/dL (83-110); Potassium 4.2 mmol/L (3.5-5.1); Sodium 135 mmol/L (136-145)
== END 2023-08-03 11:01 | disposition home or self-care (01) ==
LOC: LABBT 11:00
PROVIDERS: ATTEND Orthopaedic Surgery
DX: Z01.818 Encounter for other preprocedural examination (principal); M12.9 Arthropathy, unspecified
CPT/HCPCS: 80048; 85025; 93005; 93010

== ENCOUNTER 2023-08-04 05:44 | Day surgery (SDC) | payer MEDICARE, OTHER ==
[2023-08-01 09:54] VITALS: BMI 22.7
[2023-08-04] MEDS ORDERED: Sodium Chloride 0.9% 100 ML ONE ×2 (06:16→06:56)
[2023-08-04] MEDS ORDERED: Tranexamic Acid 1,000 MG/10 ML VIAL ONE (06:16)
[2023-08-04] MEDS ORDERED: Vancomycin 1 GM/200 ML (FROZEN) BAG ONE (06:16)
[2023-08-04] MEDS ORDERED: Ondansetron PF 4 MG/2 ML Vial ONE (06:17)
[2023-08-04] MEDS ORDERED: Lidocaine 1% PF 5 ML VIAL ONE (06:17)
[2023-08-04] MEDS ORDERED: Rocuronium Bromide 10 MG/ML (10ML VIAL) ONE (06:17)
[2023-08-04] MEDS ORDERED: Dexamethasone 4 mg/ml Vial ONE (06:17)
[2023-08-04] MEDS ORDERED: fentaNYL 50 mcg/mL 1 mL Vial ONE ×4 (06:18→08:48)
[2023-08-04] MEDS ORDERED: PROPOFOL 20 ML ONE (06:18)
[2023-08-04] MEDS ORDERED: PHENYLEPHRINE-NS 100 MCG/ML 10 ML SYRINGE ONE (06:24)
[2023-08-04] MEDS ORDERED: Phenylephrine 40 MG/NS 250 ML 250 ML ONE (06:32)
[2023-08-04] MEDS ORDERED: Lidocaine 1% (PF) 30 ML VIAL ONE (06:42)
[2023-08-04] MEDS ORDERED: Ropivacaine 0.5% HCl/PF (150 MG/30 ML VIAL) ONE (06:42)
[2023-08-04] MEDS ORDERED: Midazolam HCl 2 mg/2 ml Vial ONE ×2 (06:42→06:55)
[2023-08-04] MEDS ORDERED: Ropivacaine 0.2% HCl/PF 20 ML ONE (06:42)
[2023-08-04] MEDS ORDERED: CEFAZOLIN 2 GM VIAL ONE (06:56)
[2023-08-04] MEDS ORDERED: fentaNYL 50 mcg/mL 1 mL Vial SLOW IVP PRN (07:41)
[2023-08-04] MEDS ORDERED: Ropivacaine 0.2% 550 ML 550 ML NERVE BLCK SCH (07:45)
[2023-08-04] MEDS ORDERED: HYDROcodone/Acetaminophen 10/325 mg Tablet PO PRN ×2 (07:45)
[2023-08-04] MEDS ORDERED: Zolpidem Tartrate 5 MG TAB PO PRN (07:45)
[2023-08-04] MEDS ORDERED: Promethazine HCl 25 MG/ML VIAL IM PRN ×2 (07:45→09:36)
[2023-08-04] MEDS ORDERED: Ondansetron PF 4 MG/2 ML Vial IVP PRN (07:45)
[2023-08-04] MEDS ORDERED: traMADol HCl 50 MG TAB PO PRN ×2 (07:45)
[2023-08-04] MEDS ORDERED: Glycopyrrolate 0.2 MG/ML 5 ML SYRINGE ONE (08:40)
[2023-08-04] MEDS ORDERED: NEOSTIGMINE 3 MG/3 ML SYR 3 MG/3 ML SYRINGE ONE (08:40)
[2023-08-04] MEDS ORDERED: Ondansetron HCl/PF 4 MG/2 ML Vial IVP PRN (09:36)
[2023-08-04] MEDS ORDERED: Ketorolac Tromethamine 30 MG (1 mL) VIAL IVP SCH (12:00)
== END 2023-08-04 12:05 | disposition home or self-care (01) ==
LOC: SDC 05:44
PROVIDERS: ATTEND Orthopaedic Surgery
PROC: 0RRK0JZ Replacement of Left Shoulder Joint with Synthetic Substitute, Open Approach (ICD-10-PCS; principal; 2023-08-04)
PROC: 0LS40ZZ Reposition Left Upper Arm Tendon, Open Approach (ICD-10-PCS; 2023-08-04)
DX: M75.102 Unspecified rotator cuff tear or rupture of left shoulder, not specified as traumatic (principal); M75.22 Bicipital tendinitis, left shoulder; E78.5 Hyperlipidemia, unspecified; R73.03 Prediabetes; Z90.710 Acquired absence of both cervix and uterus; Z91.040 Latex allergy status; Z79.899 Other long term (current) drug therapy; Z90.13 Acquired absence of bilateral breasts and nipples; Z88.8 Allergy status to other drugs, medicaments and biological substances
CPT/HCPCS: 23430; 23472; A4306; C1713 ×6; C1776 ×2; J3010; J3370; J1100; J2001; J2250; J2405; J2704; J2795; J3490

== ENCOUNTER 2023-08-05 02:23 | Emergency (ER) | payer MEDICARE ==
[2023-08-05] MEDS ORDERED: fentaNYL 50 mcg/mL 1 mL Vial ONE ×2 (04:04→08:56)
[2023-08-05] MEDS ORDERED: Ondansetron PF 4 MG/2 ML Vial ONE (04:04)
[2023-08-05] MEDS ORDERED: Ropivacaine 0.2% HCl/PF 20 ML ONE (08:56)
[2023-08-05] MEDS ORDERED: Ropivacaine 0.5% HCl/PF (150 MG/30 ML VIAL) ONE (08:56)
== END 2023-08-05 10:15 | disposition home or self-care (01) ==
LOC: ERS 02:23
DX: T85.698A Other mechanical complication of other specified internal prosthetic devices, implants and grafts, initial encounter (principal)
CPT/HCPCS: 96374; 96375; 99283; J3010; J2405; J2795